=== PATIENT | female | born 1935 | race Caucasian/White ===

== ENCOUNTER 2016-11-26 14:12 | Emergency (ER) | payer MEDICARE, MEDICAID ==
[2016-11-26] MEDS ORDERED: Sodium Chloride 0.9% 1,000 ML IV ONE (14:51)
[2016-11-26 15:04] VITALS: RESP 18
[2016-11-26] MEDS ORDERED: Sodium Chloride 0.9% 1,000 ML ONE (15:12)
[2016-11-26 15:37] LABS: BASO % 0.6 % (0.0-2.0); EOS # 0.1 K/uL (0.0-0.7); EOS % 1.8 % (0.0-4.0); HEMATOCRIT 42.4 % (34.0-47.0); LYMPH # 1.6 K/uL (1.0-4.3); LYMPH % 28.3 % (20.0-40.0); MEAN CELL VOLUME 86.8 fL (81.0-99.0); MEAN CORPUSCULAR HEMOGLOBIN 28.4 pg (27.0-31.0); MEAN CORPUSCULAR HGB CONC 32.7 g/dL (33.0-37.0); MEAN PLATELET VOLUME 8.6 fL (7.2-11.7); MONO # 0.5 K/uL (0.0-0.8); MONO % 8.7 % (0.0-10.0); RED CELL DISTRIBUTION WIDTH 13.7 % (11.5-14.5); WHITE BLOOD COUNT 5.6 K/uL (4.8-10.8)
[2016-11-26 15:50] LABS: CHLORIDE 103 mmol/L (98-107)
[2016-11-26 15:51] LABS: POTASSIUM 4.5 mmol/L (3.6-5.2); SODIUM 139 mmol/L (132-148)
[2016-11-26 15:54] LABS: ALB/GLOB RATIO 1.2 (1.0-2.1); ALKALINE PHOSPHATASE 56 U/L (38-126); ALT/SGPT 41 U/L (9-52); AST/SGOT 30 U/L (14-36); BILIRUBIN,TOTAL 0.6 mg/dL (0.2-1.3); BLOOD UREA NITROGEN 21 mg/dL (7-17); CALCIUM 8.9 mg/dl (8.6-10.4); CARBON DIOXIDE 27 mmol/L (22-30); GFR AFRICAN-AMERICAN > 60; GLUCOSE,RANDOM 147 mg/dL (65-105); TOTAL PROTEIN 7.2 g/dL (6.3-8.3)
--- NOTE | 2016-11-26 16:30 | RAD ---
HISTORY: SOB COMPARISON: Comparison made with the chest radiograph dated 06/19/2016 TECHNIQUE: Chest PA and lateral FINDINGS: LUNGS: Poor inspiration with low lung volumes, mild crowded bronchovascular markings and mild bibasilar atelectasis. PLEURA: No significant pleural effusion identified. No pneumothorax apparent. CARDIOVASCULAR: Heart size within range of normal. Aorta is slightly ectatic and uncoiled. OSSEOUS STRUCTURES: Mild multilevel degenerative spondylosis of the thoracic and cervical spine. Mild degenerative changes both shoulder girdles VISUALIZED UPPER ABDOMEN: Normal. OTHER FINDINGS: None. IMPRESSION: Poor inspiration with low lung volumes, mild crowded bronchovascular markings and mild bibasilar atelectasis.
--- NOTE | 2016-11-26 16:35 | C.PDOC ---
History Of Present Illness 81 y/o female presents to the ED with complains of diffuse myalgias, tiredness, sore throat, headache, and upper back pain x3 days. Pt denies cough, fever, dizziness, SOB, abdominal pain, diarrhea or any other complaints. Time Seen by Provider: 11/26/16 14:43 Chief Complaint (Nursing): Headache History Per: Patient Onset/Duration Of Symptoms: Days Current Symptoms Are (Timing): Still Present Severity: Mild Preceeding Symptoms: None Recent travel outside of the [place]: No Past Medical History Reviewed: Historical Data, Nursing Documentation, Vital Signs Vital Signs: Last Vital Signs Temp 98.1 F 11/26/16 17:06 Pulse 74 11/26/16 17:06 Resp 18 11/26/16 17:06 BP 149/49 L 11/26/16 17:06 Pulse Ox 97 11/26/16 17:06 - Medical History PMH: Arthritis, Diabetes, Gastritis ((+)H Pylori), HTN, Hypercholesterolemia, Hyperlipidemia, Hypothyroidism Surgical History: Appendectomy - [facility] Procedures INSPECTION OF UPPER INTESTINAL TRACT, ENDO (02/12/16) Family History: States: Unknown Family Hx - Social History Hx Tobacco Use: No Hx Alcohol Use: No Hx Substance Use: No - Immunization History Hx Tetanus Toxoid Vaccination: No Hx Influenza Vaccination: No Hx Pneumococcal Vaccination: No Review Of Systems Constitutional: Negative for: Fever ENT: Positive for: Throat Pain Cardiovascular: Negative for: Chest Pain Respiratory: Negative for: Cough, Shortness of Breath Gastrointestinal: Negative for: Vomiting, Abdominal Pain, Diarrhea Musculoskeletal: Positive for: Back Pain, Other (diffuse myalgias) Neurological: Positive for: Headache Physical Exam - Physical Exam Appears: Non-toxic, No Acute Distress Skin: Warm, Dry, No Rash Head: Atraumatic, Normacephalic Ear(s): Bilateral: Normal Nose: Normal Oral Mucosa: Moist Throat: Erythema (pharyngeal), No Exudate Neck: Normal ROM, Supple Chest: Symmetrical Cardiovascular: Rhythm Regular, No Murmur Respiratory: Normal Breath Sounds, No Rales, No Rhonchi, No Wheezing Gastrointestinal/Abdominal: Soft, No Tenderness Extremity: Normal ROM Extremity: Bilateral: Atraumatic Neurological/Psych: Oriented x3, Normal Speech ED Course And Treatment - Laboratory Results Result Diagrams: 11/26/16 15:29 03/18/17 15:29 Lab Interpretation: No Acute Changes O2 Sat by Pulse Oximetry: 98 (on room air) Pulse Ox Interpretation: Normal - Radiology CXR: Interpreted by Me, Viewed By Me, Read By Radiologist (Yonas Gusman MD ) CXR Interpretation: Yes: Other (Poor inspiration with low lung volumes, mild crowded bronchovascular markings and mild bibasilar atelectasis.) Medical Decision Making Medical Decision Making: Plan: IV fluids, labs, UA, rapid strep, flu swab, CXR Progress: All labs and CXR reviewed with no acute findings. Re-eval: Upon reevaluation patient has no fever and appears well, nontoxic in no acute distress. She reports feeling better. Discussed results with patient, and copy of report was provided. Patient feels comfortable going home and will be discharged. Patient given follow up instructions. Instructed to return to ER if symptoms worsen or new symptoms arise. Disposition Counseled Patient/Family Regarding: Need For Followup, Rx Given - Disposition Referrals: Alek Toro MD [Staff Provider] - Disposition: HOME/ ROUTINE Disposition Time: 16:45 Condition: STABLE Additional Instructions: Vaya a lentz mdico o la clnica en 2-5 huitron sin falta, para mas evaluacin. [place] los medicamentos jamal indicado. Volver a la alexis de emergencia en cualquier momento si los sntomas persisten o empeoran. 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 - Scribe Statement The provider has reviewed the documentation as recorded by the Scribe Quinten Browning All medical record entries made by the Scribe were at my direction and personally dictated by me. I have reviewed the chart and agree that the record accurately reflects my personal performance of the history, physical exam, medical decision making, and the department course for this patient. I have also personally directed, reviewed, and agree with the discharge instructions and disposition.
[2016-11-26 16:37] LABS: RBC URINE 1 /hpf (0-3); URINE BACTERIA RARE (<OCC); URINE BILIRUBIN NEGATIVE (NEGATIVE); URINE BLOOD NEGATIVE (NEGATIVE); URINE COLOR Yellow (YELLOW); URINE GLUCOSE (UA) 3+ mg/dL (Normal); URINE KETONE NEGATIVE (NEGATIVE); URINE LEUKOCYTE ESTERASE NEG Leu/uL (Negative); URINE PROTEIN NEGATIVE (NEGATIVE); URINE UROBILINOGEN NORMAL mg/dL (0.2-1.0); WBC URINE 1 /hpf (0-5)
[2016-11-26 17:07] VITALS: BP 149/49; PULSE 74; TEMP 98.1
[2016-11-26 17:27] VITALS: O2SAT 98
== END 2016-11-26 17:14 | disposition home or self-care (01) ==
LOC: C.ER 14:12
DX: B34.9 Viral infection, unspecified (principal)
CPT/HCPCS: 71020; 80053; 81001; 85025; 87070; 87430; 87804; 96360; 99285; J7040

== ENCOUNTER 2017-02-11 16:40 | Emergency (ER) | payer MEDICARE, MEDICAID ==
[2017-02-11 17:11] LABS: BASO % 0.6 % (0.0-2.0); EOS # 0.2 K/uL (0.0-0.7); EOS % 3.8 % (0.0-4.0); HEMATOCRIT 41.1 % (34.0-47.0); LYMPH # 2.1 K/uL (1.0-4.3); LYMPH % 33.7 % (20.0-40.0); MEAN CELL VOLUME 86.4 fL (81.0-99.0); MEAN CORPUSCULAR HEMOGLOBIN 28.7 pg (27.0-31.0); MEAN CORPUSCULAR HGB CONC 33.2 g/dL (33.0-37.0); MEAN PLATELET VOLUME 8.6 fL (7.2-11.7); MONO # 0.4 K/uL (0.0-0.8); MONO % 6.8 % (0.0-10.0); WHITE BLOOD COUNT 6.2 K/uL (4.8-10.8)
--- NOTE | 2017-02-11 17:27 | C.PDOC ---
History Of Present Illness 81-year-old female, presents to the emergency department with complaints of a non-productive cough x3 days that is associated with shortness of breath on exertion and discomfort in lower ribs with deep inspiration. States she has a Hx of pneumonia and is concerned. A few months ago, she was diagnosed with breast mass. Patient has had repeat ultrasounds and is scheduled for a biopsy in three days. No leg swelling, URI sx, nasal congestion or any other associated symptoms. No other complaints at this time. Time Seen by Provider: 02/11/17 16:49 Chief Complaint (Nursing): Shortness Of Breath History Per: Patient History/Exam Limitations: no limitations Onset/Duration Of Symptoms: Days Current Symptoms Are (Timing): Still Present Severity: Moderate Past Medical History Reviewed: Historical Data, Nursing Documentation, Vital Signs Vital Signs: Last Vital Signs Temp 97.9 F 02/11/17 16:45 Pulse 92 H 02/11/17 16:58 Resp 17 02/11/17 16:58 BP 137/80 02/11/17 16:45 Pulse Ox 96 02/11/17 17:28 - Medical History PMH: Arthritis, Diabetes, Gastritis ((+)H Pylori), HTN, Hypercholesterolemia, Hyperlipidemia, Hypothyroidism Surgical History: Appendectomy - [facility] Procedures INSPECTION OF UPPER INTESTINAL TRACT, ENDO (02/12/16) Family History: States: No Known Family Hx - Social History Hx Tobacco Use: No Hx Alcohol Use: No Hx Substance Use: No - Immunization History Hx Tetanus Toxoid Vaccination: No Hx Influenza Vaccination: No (not sure) Hx Pneumococcal Vaccination: No (not sure) Review Of Systems Except As Marked, All Systems Reviewed And Found Negative. Constitutional: Negative for: Fever Cardiovascular: Positive for: Chest Pain Respiratory: Positive for: Cough, SOB with Excertion. Negative for: Sputum Gastrointestinal: Negative for: Nausea, Vomiting Skin: Negative for: Rash Neurological: Negative for: Weakness, Numbness, Headache, Dizziness Physical Exam - Physical Exam Appears: Non-toxic, No Acute Distress Skin: Normal Color, Warm, Dry, No Rash Head: Atraumatic, Normacephalic Eye(s): bilateral: Normal Inspection, PERRL, EOMI Nose: Normal Oral Mucosa: Moist Lips: Normal Appearing Neck: Normal ROM Cardiovascular: Rhythm Regular, No Murmur Respiratory: No Accessory Muscle Use, Other (DIMINISHED HARSH BREATH SOUNDS B/L) Gastrointestinal/Abdominal: Normal Exam Back: Normal Inspection Extremity: Normal ROM Neurological/Psych: Oriented x3 ED Course And Treatment - Laboratory Results Result Diagrams: 02/11/17 17:06 02/11/17 17:06 Lab Interpretation: No Acute Changes ECG: Interpreted By Me ECG Rhythm: Sinus Rhythm, Nonspecific Changes (T wave flattening) ECG Interpretation: No Acute Changes O2 Sat by Pulse Oximetry: 96 Pulse Ox Interpretation: Normal - Radiology CXR: Viewed By Me, Read By Radiologist CXR Interpretation: Yes: No Acute Disease, Other (Low lung volumes with bibasilar atelectasis) Reevaluation Time: 18:35 Reassessment Condition: Improved (Patient remains comfortable and in no distress. No difficulty breathing or cough in ED.) Disposition - Disposition Disposition: HOME/ ROUTINE Disposition Time: 18:40 Condition: STABLE Additional Instructions: encourage plenty of fluids and rest. Take Robitussin DM for cough if needed. Instructions: Upper Respiratory Infection (ED) Print Language: SLOVENIAN - Clinical Impression Clinical Impression: Upper respiratory infection - Scribe Statement The provider has reviewed the documentation as recorded by the Yuridia Benjamin All medical record entries made by the Scribe were at my direction and personally dictated by me. I have reviewed the chart and agree that the record accurately reflects my personal performance of the history, physical exam, medical decision making, and the department course for this patient. I have also personally directed, reviewed, and agree with the discharge instructions and disposition.
[2017-02-11 17:28] LABS: CHLORIDE 101 mmol/L (98-107)
[2017-02-11 17:29] LABS: POTASSIUM 4.2 mmol/L (3.6-5.2); SODIUM 136 mmol/L (132-148)
[2017-02-11 17:31] LABS: ALB/GLOB RATIO 1.4 (1.0-2.1); AST/SGOT 40 U/L (14-36); BILIRUBIN,TOTAL 0.6 mg/dL (0.2-1.3); CARBON DIOXIDE 25 mmol/L (22-30); GFR AFRICAN-AMERICAN > 60; TOTAL PROTEIN 7.1 g/dL (6.3-8.3)
[2017-02-11 17:32] LABS: ALKALINE PHOSPHATASE 57 U/L (38-126); ALT/SGPT 30 U/L (9-52); BLOOD UREA NITROGEN 27 mg/dL (7-17); GLUCOSE,RANDOM 242 mg/dL (65-105)
--- NOTE | 2017-02-11 18:32 | RAD ---
HISTORY: SOB COMPARISON: Comparison chest 11/26/2016 TECHNIQUE: Chest PA and lateral FINDINGS: LUNGS: Poor inspiration with low lung volumes, mild crowded bronchovascular markings and mild bibasilar atelectasis PLEURA: No significant pleural effusion identified. No pneumothorax apparent. CARDIOVASCULAR: Normal. OSSEOUS STRUCTURES: No significant abnormalities. VISUALIZED UPPER ABDOMEN: Normal. OTHER FINDINGS: None. IMPRESSION: Poor inspiration with low lung volumes, mild crowded bronchovascular markings and mild bibasilar atelectasis
[2017-02-11 19:02] VITALS: BP 155/77; PULSE 72; TEMP 97.7; O2SAT 98
[2017-02-11 19:18] VITALS: RESP 18
--- NOTE | 2017-02-17 16:50 | CARD ---
APPROVED REPORT EKG Measurement Heart [id number] <Conclusion> Normal sinus rhythm Nonspecific T wave abnormality Abnormal ECG
== END 2017-02-11 19:00 | disposition home or self-care (01) ==
LOC: C.ER 16:40
DX: J06.9 Acute upper respiratory infection, unspecified (principal)

== ENCOUNTER 2017-02-27 16:17 | Inpatient (IN) | payer MEDICARE, MEDICAID ==
--- NOTE | 2017-02-27 18:24 | C.PDOC ---
History Of Present Illness 81 y/o female presents to ED with complaint of intermittent abdominal pain for the last 2 years. (+) nauseous, (+) diarrhea. Pt was evaluated [facility] ER visit last night. Pt had CT scan done at that time, showing pancreatic mass. Patient followed up with Dr. Toro today, who instructed her to come to [facility] ER for further evaluation. She notes pain is worse every time she eats. Notes past history of H pylori, gastritis, endoscopy and colonoscopy last year. Time Seen by Provider: 02/27/17 17:56 Chief Complaint (Nursing): Abdominal Pain History Per: Patient, Family History/Exam Limitations: no limitations Onset/Duration Of Symptoms: Intermittent Episodes (2 years) Current Symptoms Are (Timing): Worse Location Of Pain/Discomfort: Epigastric Radiation Of Pain To:: None Associated Symptoms: Nausea, Diarrhea. denies: Fever, Back Pain, Urinary Symptoms Recent travel outside of the [place]: No Past Medical History Reviewed: Historical Data, Nursing Documentation, Vital Signs Vital Signs: Last Vital Signs Temp 98.1 F 03/02/17 17:35 Pulse 66 03/02/17 17:35 Resp 20 03/02/17 17:35 BP 151/80 H 03/02/17 17:35 Pulse Ox 96 03/02/17 17:35 - Medical History PMH: Arthritis, Diabetes, Gastritis ((+)H Pylori), HTN, Hypercholesterolemia, Hyperlipidemia, Hypothyroidism, Osteoporosis Surgical History: Appendectomy - [facility] Procedures INSPECTION OF UPPER INTESTINAL TRACT, ENDO (02/12/16) Family History: States: Unknown Family Hx - Social History Hx Tobacco Use: No Hx Alcohol Use: No Hx Substance Use: No - Immunization History Hx Tetanus Toxoid Vaccination: No Hx Influenza Vaccination: No (not sure) Hx Pneumococcal Vaccination: No (not sure) Review Of Systems Except As Marked, All Systems Reviewed And Found Negative. Constitutional: Negative for: Fever, Chills Cardiovascular: Negative for: Chest Pain Respiratory: Negative for: Cough, Shortness of Breath Gastrointestinal: Positive for: Nausea, Abdominal Pain, Diarrhea. Negative for : Vomiting Genitourinary: Negative for: Dysuria, Frequency, Hematuria Musculoskeletal: Negative for: Neck Pain Skin: Negative for: Rash Physical Exam - Physical Exam Appears: Non-toxic, No Acute Distress Skin: Warm, Dry Head: Atraumatic, Normacephalic Eye(s): bilateral: Normal Inspection, EOMI Nose: Normal Oral Mucosa: Moist Neck: No Paracervical Tenderness, Supple Chest: Symmetrical Cardiovascular: Rhythm Regular Respiratory: Normal Breath Sounds, No Rales, No Rhonchi, No Wheezing Gastrointestinal/Abdominal: Soft, Tenderness (mild epigastric), No Distention, No Guarding, No Rebound Back: Normal Inspection Extremity: Normal ROM, Capillary Refill (< 2 sec.) Neurological/Psych: Oriented x3, Normal Speech, Normal Cognition ED Course And Treatment - Laboratory Results Result Diagrams: 03/02/17 07:39 03/02/17 07:39 O2 Sat by Pulse Oximetry: 98 (RA) Pulse Ox Interpretation: Normal Progress Note: Treated with Lopressor. Labs ordered and reviewed. Case discussed with Dr. Toro who requests admission. Patient refuses pain medication. 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 - Scribe Statement The provider has reviewed the documentation as recorded by the Scribtyrese Cedillo All medical record entries made by the Yuridia were at my direction and personally dictated by me. I have reviewed the chart and agree that the record accurately reflects my personal performance of the history, physical exam, medical decision making, and the department course for this patient. I have also personally directed, reviewed, and agree with the discharge instructions and disposition.
[2017-02-27 18:33] LABS: BASO % 0.5 % (0.0-2.0); EOS # 0.2 K/uL (0.0-0.7); EOS % 2.5 % (0.0-4.0); HEMATOCRIT 40.2 % (34.0-47.0); LYMPH # 2.4 K/uL (1.0-4.3); LYMPH % 32.9 % (20.0-40.0); MEAN CELL VOLUME 87.3 fL (81.0-99.0); MEAN CORPUSCULAR HEMOGLOBIN 28.2 pg (27.0-31.0); MEAN CORPUSCULAR HGB CONC 32.3 g/dL (33.0-37.0); MONO # 0.5 K/uL (0.0-0.8); MONO % 6.7 % (0.0-10.0); RED CELL DISTRIBUTION WIDTH 14.2 % (11.5-14.5); WHITE BLOOD COUNT 7.2 K/uL (4.8-10.8)
[2017-02-27 18:38] LABS: RBC URINE < 1 /hpf (0-3); URINE BILIRUBIN NEGATIVE (NEGATIVE); URINE BLOOD NEGATIVE (NEGATIVE); URINE COLOR Yellow (YELLOW); URINE GLUCOSE (UA) 3+ mg/dL (Normal); URINE KETONE NEGATIVE (NEGATIVE); URINE LEUKOCYTE ESTERASE NEG Leu/uL (Negative); URINE PROTEIN NEGATIVE (NEGATIVE); URINE UROBILINOGEN NORMAL mg/dL (0.2-1.0); WBC URINE < 1 /hpf (0-5)
[2017-02-27 18:40] LABS: CHLORIDE 107 mmol/L (98-107); POTASSIUM 4.7 mmol/L (3.6-5.2); SODIUM 143 mmol/L (132-148)
[2017-02-27 18:42] LABS: GFR AFRICAN-AMERICAN > 60
[2017-02-27 18:43] LABS: ALB/GLOB RATIO 1.4 (1.0-2.1); ALKALINE PHOSPHATASE 58 U/L (38-126); ALT/SGPT 24 U/L (9-52); AST/SGOT 20 U/L (14-36); BILIRUBIN,TOTAL 0.4 mg/dL (0.2-1.3); BLOOD UREA NITROGEN 25 mg/dL (7-17); CALCIUM 8.9 mg/dl (8.6-10.4); CARBON DIOXIDE 28 mmol/L (22-30); GLUCOSE,RANDOM 267 mg/dL (65-105); TOTAL PROTEIN 6.7 g/dL (6.3-8.3)
[2017-02-27 21:09] VITALS: RESP 20
[2017-02-27] MEDS ORDERED: Ergocalciferol 50,000 Intl Units Cap PO SCH (22:45)
[2017-02-27] MEDS: Sucralfate 1 gm/10 ml Oral Susp UD PO SCH (23:00)
[2017-02-27] MEDS: Sodium Chloride 0.45% 1,000 ML IV SCH (23:01)
[2017-02-28] MEDS: Sucralfate 1 gm/10 ml Oral Susp UD PO SCH ×3 (06:16→21:39)
[2017-02-28] MEDS: Levothyroxine 50 MCG TAB PO SCH (06:16)
[2017-02-28 07:11] LABS: HEMATOCRIT 39.6 % (34.0-47.0); MEAN CELL VOLUME 86.7 fL (81.0-99.0); MEAN CORPUSCULAR HEMOGLOBIN 28.2 pg (27.0-31.0); MEAN CORPUSCULAR HGB CONC 32.5 g/dL (33.0-37.0); MEAN PLATELET VOLUME 9.3 fL (7.2-11.7); WHITE BLOOD COUNT 6.9 K/uL (4.8-10.8)
[2017-02-28 07:21] LABS: CHLORIDE 108 mmol/L (98-107)
[2017-02-28 07:22] LABS: POTASSIUM 3.6 mmol/L (3.6-5.2); SODIUM 141 mmol/L (132-148)
[2017-02-28 07:24] LABS: ALB/GLOB RATIO 1.2 (1.0-2.1); ALKALINE PHOSPHATASE 56 U/L (38-126); AST/SGOT 28 U/L (14-36); BILIRUBIN,TOTAL 0.6 mg/dL (0.2-1.3); BLOOD UREA NITROGEN 18 mg/dL (7-17); CARBON DIOXIDE 25 mmol/L (22-30); GFR AFRICAN-AMERICAN > 60; GLUCOSE,RANDOM 100 mg/dL (65-105); TOTAL PROTEIN 6.4 g/dL (6.3-8.3)
[2017-02-28 07:25] LABS: ALT/SGPT 23 U/L (9-52); CALCIUM 8.6 mg/dl (8.6-10.4)
[2017-02-28 09:11] LABS: CA 19-9 7.1 U/mL (0-37); CARCINOEMBRYONIC ANTIGEN 0.7 ng/mL (0-3.0); THYROID STIMULATING HORMONE 3.89 mIU/L (0.46-4.68)
--- NOTE | 2017-02-28 10:00 | CP.PCM.CON ---
History of Present Illness - History of Present Illness History of Present Illness: 81 yo female presented to [facility] two days ago with epigastric and diffuse abdominal pain, nausea and diarrhea for the previous two days. Patient has had similar pain for the past two years. EGD done here last year showed hiatal hernia and mild gastritis, no ulcer or mass. CTA at [facility] report shows a 6mm enhancing lesion in the head of the pancreas but no adenopathy, ductal dilatation or other findings. Tumor markers on admission here were negative after being sent to ER by PCP. No fever, chills, weight loss. MRI with contrast of pancreas advised by radiologist at [facility]. No Etoh or pancreatic problems in the past. Review of Systems - Constitutional Constitutional: absent: Chills, Excessive Sweating - Respiratory Respiratory: absent: Cough, Dyspnea on Exertion, Chest Congestion - Gastrointestinal Gastrointestinal: As Per HPI, Abdominal Pain, Bloating, Diarrhea, Nausea. absent: Coffee Ground Emesis, Heartburn, Hematemesis, Hematochezia, Melena, Odynophagia - Genitourinary Genitourinary: absent: Dysuria, Pyuria Past Patient History - Past Medical History & Family History Past Medical History?: Yes - Past Social History Smoking Status: Never Smoked Alcohol: None Drugs: Denies Home Situation {Lives}: With Family - CARDIAC Hx Hypercholesterolemia: Yes Hx Hypertension: Yes - PULMONARY Hx Respiratory Disorders: No - NEUROLOGICAL Hx Neurological Disorder: Yes Hx Dizziness: Yes - HEENT Hx HEENT Problems: Yes Hx Cataracts: Yes Other/Comment: WEARS GLASSES - RENAL Hx Chronic Kidney Disease: No - ENDOCRINE/METABOLIC Hx Endocrine Disorders: Yes Hx Diabetes Mellitus Type 2: Yes Hx Hypothyroidism: Yes - HEMATOLOGICAL/ONCOLOGICAL Hx Blood Disorders: No Hx Cirrhosis: No Hx Hepatitis A: No Hx Hepatitis B: No Hx Hepatitis C: No Hx Human Immunodeficiency Virus (HIV): No - INTEGUMENTARY Hx Dermatological Problems: No - MUSCULOSKELETAL/RHEUMATOLOGICAL Hx Falls: No - GASTROINTESTINAL Hx Gastrointestinal Disorders: Yes Hx Bowel Surgery: No Hx Clostridium Difficile: No Hx Colitis: No Hx Colostomy: No Hx Constipation: No Hx Crohn's Disease: No Hx Diarrhea: No Hx Diverticulitis: No Hx Esophageal Varices: No Hx Fatty Liver Disease: No Hx Gall Bladder Disease: No Hx Gastritis: Yes ((+)H Pylori) Hx Gastroesophageal Reflux: Yes Hx Hemorrhoids: No Hx Ileostomy: No Hx Irritable Bowel: No Hx Liver Failure: No Hx Nausea: No Hx Pancreatitis: Yes HX Swallowing Problems: No Hx Ulcer: No Hx Vomiting: No Other/Comment: colonoscopy done at [facility] two years ago per family and was normal - GENITOURINARY/GYNECOLOGICAL Hx Genitourinary Disorders: No - PSYCHIATRIC Hx Psychophysiologic Disorder: No Hx Substance Use: No - SURGICAL HISTORY Hx Surgeries: Yes Hx Appendectomy: Yes - ANESTHESIA Hx Anesthesia: Yes Hx Anesthesia Reactions: Yes (Delusions) Hx Malignant Hyperthermia: No Has any member of the family had a problem w/ anesthesia?: No Meds Allergies/Adverse Reactions: Allergies Allergy/AdvReac Type Severity Reaction Status Date / Time Insulins Allergy Intermediate VOMITING Verified 02/27/17 16:32 Penicillins Allergy Intermediate SHORTNESS Verified 02/27/17 16:32 OF BREATH - Medications Medications: Current Medications Dicyclomine HCl (Bentyl) 10 mg PO BID [facility] Ergocalciferol (Drisdol 50,000 Intl Units Cap) 1 cap PO Q7D [facility] Glimepiride (Amaryl) 2 mg PO AMHS [facility] Heparin Sodium (Porcine) (Heparin) 5,000 units SC Q12 [facility] Last Admin: 02/27/17 23:00 Dose: 5,000 units Sodium Chloride (Sodium Chloride 0.45%) 1,000 mls @ 80 mls/hr IV .[id number] [facility] Last Admin: 02/27/17 23:01 Dose: 80 mls/hr Levothyroxine Sodium (Synthroid) 50 mcg PO DAILY@0630 [facility] Last Admin: 02/28/17 06:16 Dose: 50 mcg Lisinopril (Zestril) 5 mg PO DAILY [facility] Meclizine HCl (Antivert) 12.5 mg PO Q8H [facility] Last Admin: 02/28/17 06:16 Dose: 12.5 mg Metoprolol Tartrate (Lopressor) 25 mg PO DAILY [facility] Multivitamins (Hexavitamin) 1 tab PO DAILY [facility] Pantoprazole Sodium (Protonix Inj) 40 mg IVP DAILY [facility] Pneumococcal Polyvalent Vaccine (Pneumovax 23 Vaccine) 0.5 ml IM .ONCE ONE Stop: 03/01/17 10:01 Sucralfate (Carafate Oral Susp) 1 gm PO Q8H [facility] Last Admin: 02/28/17 06:16 Dose: 1 gm Physical Exam - Constitutional Appears: No Acute Distress - Head Exam Head Exam: ATRAUMATIC, NORMOCEPHALIC - Eye Exam Eye Exam: EOMI, PERRL - Respiratory Exam Respiratory Exam: Clear to Auscultation Bilateral, NORMAL BREATHING PATTERN - Cardiovascular Exam Cardiovascular Exam: REGULAR RHYTHM, +S1 - GI/Abdominal Exam GI & Abdominal Exam: Normal Bowel Sounds, Soft. absent: Distended, Guarding, Mass, Rebound, Rigid, Tenderness - Rectal Exam Rectal Exam: Deferred - Extremities Exam Extremities exam: Positive for: normal inspection. Negative for: calf tenderness, pedal edema - Neurological Exam Neurological exam: Alert, Oriented x3 - Psychiatric Exam Psychiatric exam: Normal Affect, Normal Mood - Skin Skin Exam: Dry, Warm Results - Vital Signs Recent Vital Signs: Last Vital Signs Temp 98.1 F 02/28/17 08:00 Pulse 74 02/28/17 08:00 Resp 20 02/28/17 08:00 BP 148/72 02/28/17 08:00 Pulse Ox 97 02/28/17 08:00 - Labs Result Diagrams: 02/28/17 06:48 02/28/17 06:48 Labs: Laboratory Results - last 24 hr 02/27/17 02/27/17 02/27/17 18:28 18:28 18:28 WBC 7.2 RBC 4.61 Hgb 13.0 Hct 40.2 MCV 87.3 MCH 28.2 MCHC 32.3 L RDW 14.2 Plt Count 258 MPV 9.0 Neut % (Auto) 57.4 Lymph % (Auto) 32.9 Barren % (Auto) 6.7 Eos % (Auto) 2.5 Baso % (Auto) 0.5 Neut # 4.1 Lymph # 2.4 Barren # 0.5 Eos # 0.2 Baso # 0.0 APTT Sodium 143 Potassium 4.7 Chloride 107 Carbon Dioxide 28 Anion Gap 12 BUN 25 H Creatinine 0.8 Est GFR ( Amer) > 60 Est GFR (Non-Af Amer) > 60 POC Glucose (mg/dL) Random Glucose 267 H Calcium 8.9 Total Bilirubin 0.4 AST 20 ALT 24 Alkaline Phosphatase 58 Total Protein 6.7 Albumin 3.9 Globulin 2.8 Albumin/Globulin Ratio 1.4 Alpha Fetoprotein Carcinoembryonic Ag CA 19-9 Antigen TSH 3rd Generation Urine Color Yellow Urine Clarity Clear Urine pH 5.0 Ur Specific [place] 1.040 H Urine Protein Negative Urine Glucose (UA) 3+ H Urine Ketones Negative Urine Blood Negative Urine Nitrate Negative Urine Bilirubin Negative Urine Urobilinogen Normal Ur Leukocyte Esterase Neg Urine WBC (Auto) < 1 Urine RBC (Auto) < 1 Ur Squamous Epith Cells < 1 02/27/17 02/28/17 02/28/17 21:45 06:48 06:48 WBC 6.9 RBC 4.56 Hgb 12.9 Hct 39.6 MCV 86.7 MCH 28.2 MCHC 32.5 L RDW 14.0 Plt Count 231 MPV 9.3 Neut % (Auto) Lymph % (Auto) Barren % (Auto) Eos % (Auto) Baso % (Auto) Neut # Lymph # Barren # Eos # Baso # APTT 33 Sodium Potassium Chloride Carbon Dioxide Anion Gap BUN Creatinine Est GFR ( Amer) Est GFR (Non-Af Amer) POC Glucose (mg/dL) 152 H Random Glucose Calcium Total Bilirubin AST ALT Alkaline Phosphatase Total Protein Albumin Globulin Albumin/Globulin Ratio Alpha Fetoprotein Carcinoembryonic Ag CA 19-9 Antigen TSH 3rd Generation Urine Color Urine Clarity Urine pH Ur Specific [place] Urine Protein Urine Glucose (UA) Urine Ketones Urine Blood Urine Nitrate Urine Bilirubin Urine Urobilinogen Ur Leukocyte Esterase Urine WBC (Auto) Urine RBC (Auto) Ur Squamous Epith Cells 02/28/17 02/28/17 02/28/17 06:48 06:48 07:16 WBC RBC Hgb Hct MCV MCH MCHC RDW Plt Count MPV Neut % (Auto) Lymph % (Auto) Barren % (Auto) Eos % (Auto) Baso % (Auto) Neut # Lymph # Barren # Eos # Baso # APTT Sodium 141 Potassium 3.6 Chloride 108 H Carbon Dioxide 25 Anion Gap 12 BUN 18 H Creatinine 0.5 L Est GFR ( Amer) > 60 Est GFR (Non-Af Amer) > 60 POC Glucose (mg/dL) 119 H Random Glucose 100 Calcium 8.6 Total Bilirubin 0.6 AST 28 ALT 23 Alkaline Phosphatase 56 Total Protein 6.4 Albumin 3.6 Globulin 2.9 Albumin/Globulin Ratio 1.2 Alpha Fetoprotein 1.1 Carcinoembryonic Ag 0.7 CA 19-9 Antigen 7.1 TSH 3rd Generation 3.89 Urine Color Urine Clarity Urine pH Ur Specific [place] Urine Protein Urine Glucose (UA) Urine Ketones Urine Blood Urine Nitrate Urine Bilirubin Urine Urobilinogen Ur Leukocyte Esterase Urine WBC (Auto) Urine RBC (Auto) Ur Squamous Epith Cells Assessment & Plan (1) Pancreatic mass Assessment and Plan: Patient with enhancing mass on CTA at [facility] that is small and not associated with other adenopathy or mass effect. r/o neoplasm, hemangioma, neuroendocrine tumor of pancreas. Tumor markers negative for malignancy. MRI with contrast scheduled May need interventional GI Consultation for EUS to better delineate the lesion and/or need for FNA (needle biopsy). Status: Acute (2) Diarrhea Assessment and Plan: r/o infectious, ischemic, doubt malignancy or malabsorption due to acute onset. Stool studies ordered. Status: Acute (3) Abdominal pain Assessment and Plan: Pain is chronic and similar in nature over the past two years. Prior gi work up has been negative including EGD reviewed here and colonoscopy which I can not review as records not accessible form other facility. Doubt pain is related to findings in pancreas. Status: Chronic
[2017-02-28] MEDS: Multiple Vitamins Tab PO SCH (10:52)
[2017-02-28] MEDS: Sodium Chloride 0.45% 1,000 ML IV SCH ×2 (11:04→22:00)
[2017-02-28] MEDS ORDERED: Gadodiamide 287 MG/ML VIAL (15ML) IV ONE (12:19)
[2017-02-28 12:45] LABS: AMYLASE 51 U/L (30-110)
--- NOTE | 2017-02-28 15:47 | MRI ---
PROCEDURE: MRI BRAIN WITH AND WITHOUT CONTRAST HISTORY: dizziness COMPARISON: None. TECHNIQUE: Multiplanar, multisequence MR images of the brain were obtained with and without intravenous contrast enhancement. FINDINGS: HEMORRHAGE: None DWI: No evidence of an acute or early subacute infarction. BRAIN PARENCHYMA: No mass,mass effect or edema. Mild atrophy and mild white matter changes likely due to chronic microvascular ischemic disease. ENHANCEMENT: No abnormal intracranial enhancement. VENTRICLES: Unremarkable. No hydrocephalus. CRANIUM: Unremarkable. ORBITS: Grossly unremarkable. PARANASAL SINUSES/MASTOIDS: Clear VASCULAR SYSTEM: Skull base flow voids intact. OTHER FINDINGS: None . IMPRESSION: No evidence of acute infarct or acute intracranial pathology. No evidence of mass lesion abnormal enhancement mass effect or midline shift. Mild atrophy.
[2017-03-01] MEDS: Levothyroxine 50 MCG TAB PO SCH (05:43)
[2017-03-01] MEDS: Sucralfate 1 gm/10 ml Oral Susp UD PO SCH ×4 (05:45→21:34)
--- NOTE | 2017-03-01 06:52 | HP ---
HISTORY OF PRESENT ILLNESS: The patient is an 81-year-old female with history of diabetes and hyperte nsion and gastritis. The patient came to my office complaining of abdominal pain and nausea. The margoth maldonado was at [facility] for similar symptoms and a CAT scan was done on this patient and a mass was found in the head of the pancreas. The patient was discharged, but the patient was st ill having similar symptoms. The patient was also complaining of ____ weakness. I have advised patie nt to go to [facility] for evaluation and admission. ALLERGIES: PENICILLIN. MEDICATIONS: The patient was on multiple medications including meclizine, sucralfate, metoprolol, Am aryl, Levoxyl and ____. PAST MEDICAL HISTORY: As I mentioned, history of hypothyroidism, history of GERD, history of diabete s and hypertension. FAMILY HISTORY: No inherited disease. REVIEW OF SYSTEMS: RESPIRATORY: The patient denied any shortness of breath. CARDIOVASCULAR: The patient denies any chest pain or palpitations. GASTROINTESTINAL: Epigastric pain and nausea. GENITOURINARY: No dysuria. NEUROLOGIC: The patient is awake ____ patient is somewhat worried and depressed. PHYSICAL EXAMINATION: GENERAL: The patient is alert, awake, oriented x 3, but the patient is somewhat worried, anxious. VITAL SIGNS: Blood pressure was 162/82, pulse 74, respirations 20, temperature 98.1. ____ blood pre ssure 121/74, pulse 66, respirations 20, and temperature 97.5. HEENT: Head is normocephalic. Pupils are equal. LUNGS: Clear. HEART: Regular rate and rhythm. Positive murmur. ABDOMEN: Soft, tenderness in the epigastric area. No palpable mass. EXTREMITIES: There is no edema. NEUROLOGIC: The patient is weak and also there is dizziness with change of position, with tendency o f losing balance. LABORATORY DATA: The patient had some tests done. WBC 7.3, hemoglobin 13, hematocrit 40.2, platelet s 258. Today, WBC is 6.9, hemoglobin 12.9, hematocrit ____ and platelets 231. Chemistry: Sodium 14 1, potassium 3.6, chloride 108, bicarb is 25, BUN 18, creatinine is 0.5. Glucose is 100. The patient today had some other tests done. Among then, the patient had an MRI of the brain. The M RI of the brain done showed no evidence of acute infarct or acute intracranial pathology. No evidenc e of mass lesion ____ mass effect or midline shift. DIAGNOSES: So, the patient is admitted with: 1. Abdominal pain. 2. Pancreatic mass. 3. Diabetes. 4. Hypertension. 5. Hypothyroidism. 6. Depression. PLAN: So patient had a consult with LAURA Rosa, and also had an endocrinology consult with Dr. Keanu townsend, and neuro consult with Dr. Tirado. The case was studied and reviewed and discussed with the [facility], Gabrielle Valle. Alek Toro MD cc: [id number] TT: 02/28/2017 20:44:18 jude
--- NOTE | 2017-03-01 07:39 | CON ---
DATE: 03/01/2017 ATTENDING PHYSICIAN: Alek Toro MD ROOM: 356, bed A. REASON FOR CONSULTATION: Dizziness. CHIEF COMPLAINT: The patient was brought into [facility] with a history of abdominal discomfort who has been worked up in medical center, presented here with the same problem. She was admitting a history of dizziness. From neurological point of view, I was called in to evaluate her for further management. HISTORY OF PRESENT ILLNESS: The patient is an 81-year-old, young-looking, right-handed, fem reagan, presenting with 3 months history of dizziness. She describes that her dizziness occurs when she changes her position from sitting to standing, standing to walking. Mostly when the body turns to t he right, she feels that dizziness. No history of fall, no history of losing balance. However, her body moves to the right at times. No history of recent travel. No history of ear infection. No his tory of double vision. No history of bulbar dysfunction. No history of focal weakness. No history of headache. No history of neck pain. No history of lower back pain. No history of keren l or bladder incontinence. PAST MEDICAL HISTORY: Non-insulin dependent diabetes mellitus, hypertension, dyslipidemia, hypothyro idism. PERSONAL HISTORY: Denies smoking or alcohol use. ALLERGIES: INSULIN AND PENICILLIN. MEDICATIONS: In the hospital, she gets Amaryl, Antivert, Bentyl, Carafate, Drisdol, heparin, vitamin s, Lopressor, Synthroid, Zestril. REVIEW OF SYSTEMS: As per H and P. PHYSICAL EXAMINATION: VITAL SIGNS: Blood pressure 165/90, mean arterial pressure 115, respiratory rate 16, temperature afe brile. NECK: Supple. No carotid bruit. HEART SOUNDS: Regular. CHEST: Fair air entry. EXTREMITIES: No edema in legs. Distal muscle group atrophy noted. NEUROLOGIC EXAMINATION: MENTAL STATUS: She is awake, alert, oriented to person, place and time. She is communicable only in Kyr[place]z. Naming, repetition, fluency, comprehension all within normal. CRANIAL NERVES: Visual field intact. Pupils reactive to light. Extraocular movements normal. No n ystagmus. No facial sensory deficit, no facial asymmetry. Hearing is normal. Tongue is midline. G ood gag. MOTOR: On outstretched hands with eyes closed, no drift noted. Power is symmetric on either side. DEEP TENDON REFLEXES: Biceps, brachioradialis, triceps are trace. Both knees are 1+. Both ankles a re absent. Plantars are downgoing. SENSORY: Mild distal sensorimotor neuropathy noted. COORDINATION: Kaisio-xwxq-nnzfin test is intact. GAIT: She could able to get up on her own from the bed. Romberg sent body leaning to the right. On marching with eyes closed, again body is leaning to the right. Tandem is fair. CONCLUSION: Upon reviewing her history and neurological examination, the patient presenting with 3-m onth history of recurrent episode of dizziness, which is position related, more on right side, consis tent with mid cerebellar dysfunction versus peripheral vestibular neuronopathy. 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 WORKUP: WBC 6.9, hemoglobin 12.9, hematocrit 39.6, platelet 231. Sodium 141, potassium 3.6, chlorid e 108, bicarbonate 25, BUN 18, creatinine 0.5, GFR more than 60, glucose 242, calcium 8.6, AST 28, AL T 23. CA 19-9 is 7.1. CEA 0.7. TSH 3.89. RECOMMENDATIONS: 1. The patient should have MRI of the brain to rule out posterior ischemic process or space oc cupying lesion. If there is no sign of tendency of bleeding, patient should be on Plavix for stroke prophylaxis as well as for vestibulopathy. 2. Blood pressure control. 3. Physical therapy should be entertained as early as possible to train her balance and gait. The patient is recommended to have electrodiagnostic studies, which include electromyography and nerv e conduction study to assess the extent of her neuropathy. The patient should be benefited of erica cedeno vestibular rehabilitation, which can be done as outpatient as well. The patient also discussed about controlling her blood pressure and patient should have a polysomnogr am as outpatient to rule in or rule out sleep related breathing disorder because of her cofounding ri sk factors. The patient will be followed closely with you. Jamarcus Tirado MD cc: [id number] TT: 03/01/2017 07:38:55 Confirmation # [id number] Dictation # [id number] en
[2017-03-01] MEDS ORDERED: Pneumococcal 23-Valent Vaccine IM ONE (10:00)
[2017-03-01] MEDS: Multiple Vitamins Tab PO SCH (10:23)
[2017-03-01] MEDS: Sodium Chloride 0.45% 1,000 ML IV SCH (10:26)
[2017-03-01] MEDS ORDERED: Gadodiamide 287 MG/ML VIAL (15ML) IV ONE (11:50)
--- NOTE | 2017-03-01 16:34 | VASCLAB ---
PROCEDURE: HISTORY: stenosis COMPARISON: None available. TECHNIQUE: Grayscale and duplex Doppler evaluation of the cervical carotid and vertebral arteries were performed. The common carotid, carotid bifurcations and cervical Internal Carotid Artery (ICA) and proximal External Carotid Artery (ECA) were evaluated. The vertebral arteries were evaluated for gross patency and flow direction. Report prepared by Oscar Castañeda, BS, RVT FINDINGS: RIGHT CAROTID ARTERIES: 1. Common Carotid Artery: No significant focal plaque formation of the right common carotid artery. Maximum Peak Systolic velocity: 67 cm/sec: End-diastolic velocity 12 cm/sec. 2. Carotid Bifurcation: plaque formation. Maximum Peak Systolic velocity: 77 cm/sec: End-diastolic velocity 12 cm/sec. 3. Internal Carotid Artery: Plaque description: 3.1. Proximal Segment: Peak systolic velocity 70 cm/sec: End-diastolic velocity 16 cm/sec - % stenosis 0-15% 3.2. Middle Segment: Peak systolic velocity 58 cm/sec: End-diastolic velocity 11 cm/sec - % stenosis 0-15% 3.3. Distal Segment: Peak systolic velocity 53 cm/sec: End-diastolic velocity 9 cm/sec - % stenosis 0-15% 4. External Carotid Artery: No significant focal plaque formation. Peak systolic velocity 68 cm/sec 5. ICA/CCA Ratio: 1.2 LEFT CAROTID ARTERIES: 1. Common Carotid Artery: No significant focal plaque formation of the left common carotid artery. Maximum Peak Systolic velocity: 87 cm/sec: End-diastolic velocity 15 cm/sec. 2. Carotid Bifurcation: plaque formation. Maximum Peak Systolic velocity: 38 cm/sec: End-diastolic velocity 9 cm/sec. 3. Internal Carotid Artery: Plaque description: 3.1. Proximal Segment: Peak systolic velocity 70 cm/sec: End-diastolic velocity 19 cm/sec - % stenosis 0-15% 3.2. Middle Segment: Peak systolic velocity 51 cm/sec: End-diastolic velocity 11 cm/sec - % stenosis 0-15% 3.3. Distal Segment: Peak systolic velocity 55 cm/sec: End-diastolic velocity 11 cm/sec - % stenosis 0-15% 4. External Carotid Artery: No significant focal plaque formation. Peak systolic velocity cm/sec 5. ICA/CCA Ratio: VERTEBRAL ARTERIES: 1. Right Vertebral Artery: The right vertebral artery flow direction is antegrade. 2. Left Vertebral Artery: The left vertebral artery flow direction is antegrade. OTHER FINDINGS: 1. Right Brachial Blood pressure: 180 mmHg. 2. Left Brachial Blood pressure: mmHg. IMPRESSION: RIGHT: Duplex scan does not suggest hemodynamically significant stenosis of the right extracranial carotid arteries. LEFT: Duplex scan does not suggest hemodynamically significant stenosis of the left extracranial carotid arteries.
--- NOTE | 2017-03-01 18:03 | MRI ---
PROCEDURE: MRI Abdomen with and without contrast HISTORY: Evaluate for pancreatic head mass. COMPARISON: Comparison is made to the previous CT dated 10/28/2011. TECHNIQUE: Multisequence, multiplanar MR images of the abdomen with and without gadolinium contrast enhancement. FINDINGS: LIVER: No evidence of suspicious mass or acute pathology. GALLBLADDER: Unremarkable. SPLEEN: Unremarkable. PANCREAS: The pancreas is small in size. The main pancreatic duct is slightly dilated. No evidence of enhancing mass lesion. ADRENALS: Unremarkable. KIDNEYS: Unremarkable. AORTA: No aneurysm. ASCITES: None. PERITONEUM: Unremarkable. LYMPH NODES: Unremarkable. OTHER FINDINGS: None. IMPRESSION: No evidence of acute pathology or mass lesion in the pancreas. The main pancreatic duct is slightly prominent in size. The pancreas is mildly atrophic. No evidence of acute pathology or suspicious lesion in the upper abdomen solid organs.
--- NOTE | 2017-03-01 19:44 | PN ---
DATE: 03/01/2017 SUBJECTIVE: Today, the patient is alert and awake and is still complaining of dizziness at times, bu t less abdominal pain, no shortness of breath, no chest pain. OBJECTIVE: VITAL SIGNS: The patient has a blood pressure of 144/68, the pulse is 66, respiration 20, temperatur e 97.8. HEENT: Head is normocephalic. NECK: Supple. No JVD. LUNGS: Clear. HEART: Regular rate and rhythm. ABDOMEN: Soft. Mild tenderness in the epigastric area. EXTREMITIES: There is no edema. LABORATORY DATA: The patient had today an MRI of the abdomen that showed that the pancreas is small in size but the main pancreatic duct is slightly dilated. No evidence of enhancing mass lesion. CONCLUSION: No evidence of acute pathology or mass lesion in the pancreas. The main pancreatic duct is slightly in size. The pancreas is mildly atrophic. No evidence of acute atrophy or suspic ious lesions in the abdomen . PLAN: Consult from Dr. Tirado is appreciated and the recommendation will be will be followed an d will continue the patient on medication and start physical therapy. Alek Toro MD cc: [id number] TT: 03/01/2017 19:43:32 Confirmation # [id number] Dictation # [id number] ln
[2017-03-02] MEDS: Levothyroxine 50 MCG TAB PO SCH (05:32)
[2017-03-02] MEDS: Sucralfate 1 gm/10 ml Oral Susp UD PO SCH ×2 (05:32→13:30)
--- NOTE | 2017-03-02 07:40 | PN ---
DATE: 03/02/2017 TIME OF EVALUATION: 6:55 a.m. 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 PHYSICAL EXAMINATION: VITAL SIGNS: Blood pressure 138/73, mean arterial pressure of 94, respiratory rate 16, temperature 9 8.1, pulse rate 73. NEUROLOGIC: The patient seems to be improved neurologically. Her dizziness is improved. Examinatio n is unchanged to compare with the previous examination. MRI of the brain does not show any focal pathology as well as the CP angle region. The patient's workup, MRI of the brain does not show any focal pathology. RECOMMENDATIONS: The patient is neurologically stable. Once medically stable, the patient can be di scharged and should have followup visit as outpatient. At that point, the patient may need a video e lectroencephalogram as well as the vestibular therapy rehabilitation should be initiated. Jamarcus Tirado MD cc: [id number] TT: 03/02/2017 07:39:53 Confirmation # [id number] Dictation # [id number] tn
[2017-03-02 08:21] LABS: BASO % 0.6 % (0.0-2.0); EOS # 0.3 K/uL (0.0-0.7); EOS % 4.3 % (0.0-4.0); HEMATOCRIT 41.2 % (34.0-47.0); LYMPH # 2.7 K/uL (1.0-4.3); LYMPH % 38.4 % (20.0-40.0); MEAN CELL VOLUME 87.4 fL (81.0-99.0); MEAN CORPUSCULAR HEMOGLOBIN 28.7 pg (27.0-31.0); MEAN CORPUSCULAR HGB CONC 32.8 g/dL (33.0-37.0); MEAN PLATELET VOLUME 9.1 fL (7.2-11.7); MONO # 0.5 K/uL (0.0-0.8); MONO % 7.6 % (0.0-10.0); NRBC % 0.4 % (0.0-2.0); RED CELL DISTRIBUTION WIDTH 13.6 % (11.5-14.5); WHITE BLOOD COUNT 7.1 K/uL (4.8-10.8)
[2017-03-02 08:26] LABS: CHLORIDE 107 mmol/L (98-107); POTASSIUM 3.8 mmol/L (3.6-5.2); SODIUM 141 mmol/L (132-148)
[2017-03-02 08:28] LABS: BILIRUBIN,TOTAL 0.6 mg/dL (0.2-1.3); CARBON DIOXIDE 26 mmol/L (22-30); GFR AFRICAN-AMERICAN > 60
[2017-03-02 08:29] LABS: ALB/GLOB RATIO 1.1 (1.0-2.1); ALKALINE PHOSPHATASE 54 U/L (38-126); ALT/SGPT 22 U/L (9-52); AST/SGOT 31 U/L (14-36); BLOOD UREA NITROGEN 15 mg/dL (7-17); CALCIUM 9.2 mg/dl (8.6-10.4); GLUCOSE,RANDOM 105 mg/dL (65-105); TOTAL PROTEIN 6.5 g/dL (6.3-8.3)
[2017-03-02] MEDS ORDERED: Ergocalciferol 50,000 Intl Units Cap PO SCH (10:00)
[2017-03-02] MEDS: Multiple Vitamins Tab PO SCH (10:18)
[2017-03-02 17:37] VITALS: BP 151/80; PULSE 66; TEMP 98.1
[2017-03-02 20:24] VITALS: O2SAT 98
--- NOTE | 2017-03-03 10:23 | PN ---
DATE: 03/02/2017 SUBJECTIVE: GENERAL: Today, the patient is alert and awake. Denies abdominal pain. No shortness of breath. No chest pain. The patient denies dizziness today, but still feels somewhat weak. VITAL SIGNS: The patient has a blood pressure of 162/76, pulse 67, respirations 20, temperature is 9 7.9. NECK: Supple. No JVD. LUNGS: Clear. HEART: Regular rate and rhythm. ABDOMEN: Soft, positive bowel sounds, nontender. No hepatosplenomegaly. EXTREMITIES: There is no edema. LABORATORY DATA: The patient had tests done. WBC is 7.1, hemoglobin 13.5, hematocrit 41.2, and plat elets 251. Chemistry showed the sodium is 141, potassium 3.8, chloride 107, bicarbonate 26, BUN is 1 6, creatinine 0.7. Glucose is 105. Also, the patient had MRI of the abdomen with and without contra st and that showed no evidence of acute pathology or mass lesion in the pancreas. The main pancreati c duct is slightly small in size and the pancreatic is mildly atrophied. There is no evidence of act maykel pathology or suspicious lesion in the abdomen solid organs. So, the case was discussed with the whole family including the son, brother and also a niece. The patient has had MRI with and without contrast mass as described in the previous CAT scan done at [facility]. Exte nsive explanation was given at this point. Also, the case was reviewed and discussed with Gabrielle coello, the nurse practitioner. At this point, we are going to discharge the patient home, but the azeem ent has physical therapy, so with home PT. We also gave the patient home health aide. Alek Toor MD cc: [id number] TT: 03/02/2017 17:42:51 Confirmation # [id number] Dictation # [id number] dn 03/03/2017 09:22:15
== END 2017-03-02 18:00 | disposition home health service (06) | DRG 440 ==
LOC: C.ER 16:17 → C.9E 18:13 → C.3T 19:03
PROVIDERS: ADMIT Specialist; ATTEND Specialist
DX: K86.89 Other specified diseases of pancreas (principal); E11.42 Type 2 diabetes mellitus with diabetic polyneuropathy; I10 Essential (primary) hypertension; E03.9 Hypothyroidism, unspecified; F32.9 Major depressive disorder, single episode, unspecified; E78.5 Hyperlipidemia, unspecified; K21.9 Gastro-esophageal reflux disease without esophagitis; K29.70 Gastritis, unspecified, without bleeding; K44.9 Diaphragmatic hernia without obstruction or gangrene; M81.0 Age-related osteoporosis without current pathological fracture; Z90.49 Acquired absence of other specified parts of digestive tract; Z79.84 Long term (current) use of oral hypoglycemic drugs

== ENCOUNTER 2018-10-23 00:16 | Emergency (ER) | payer MEDICARE, MEDICAID ==
[2018-10-23 00:45] VITALS: TEMP 97.5
--- NOTE | 2018-10-23 00:53 | C.PDOC ---
History Of Present Illness 83 year old female presents to the ED c/o constipation and rectal pain for the past 3 days. Patient reports her last bowel movement was 3 days ago. Patient states she feels rectal fullness. Patient denies fever, chills, nausea, vomit, diarrhea, rash, recent travel, sick contacts. Time Seen by Provider: 10/23/18 00:52 Chief Complaint (Nursing): GI Problem History Per: Patient History/Exam Limitations: no limitations Onset/Duration Of Symptoms: Days (3) Current Symptoms Are (Timing): Still Present Recent travel outside of the [place]: No Additional History Per: Patient Past Medical History Reviewed: Historical Data, Nursing Documentation, Vital Signs Vital Signs: Last Vital Signs Temp 97.5 F L 10/23/18 00:24 Pulse 100 H 10/23/18 00:24 Resp 20 10/23/18 00:24 BP 191/114 H 10/23/18 00:24 Pulse Ox 96 10/23/18 00:24 - Medical History PMH: Arthritis, Diabetes, Gastritis ((+)H Pylori), HTN, Hypercholesterolemia, Hyperlipidemia, Hypothyroidism, Osteoporosis, Pancreatitis Denies: Crohn's Disease, Diverticulitis, Gall Bladder Disease, HIV, Chronic Kidney Disease Surgical History: Appendectomy - [facility] Procedures INSPECTION OF UPPER INTESTINAL TRACT, ENDO (02/12/16) Family History: States: Unknown Family Hx - Social History Hx Tobacco Use: No Hx Alcohol Use: No Hx Substance Use: No - Immunization History Hx Tetanus Toxoid Vaccination: No Hx Influenza Vaccination: No Hx Pneumococcal Vaccination: No Review Of Systems Constitutional: Negative for: Fever, Chills Cardiovascular: Negative for: Chest Pain Respiratory: Negative for: Shortness of Breath Gastrointestinal: Positive for: Abdominal Pain, Constipation, Rectal Pain. Negative for: Nausea, Vomiting Musculoskeletal: Negative for: Back Pain Skin: Negative for: Rash Neurological: Negative for: Weakness, Numbness, Headache, Dizziness Physical Exam - Physical Exam Appears: Non-toxic, No Acute Distress Skin: Warm, Dry Head: Normacephalic Eye(s): bilateral: Normal Inspection Oral Mucosa: Moist Neck: Supple Chest: Symmetrical Cardiovascular: Rhythm Regular Respiratory: No Rales, No Rhonchi, No Wheezing Gastrointestinal/Abdominal: Soft, No Tenderness, No Guarding, No Rebound Rectal: Other (stool in the vault) Extremity: Bilateral: Atraumatic, Normal Color And Temperature, Normal ROM Neurological/Psych: Oriented x3, Normal Speech, Normal Cognition Gait: Steady ED Course And Treatment O2 Sat by Pulse Oximetry: 96 (ON RA) Pulse Ox Interpretation: Normal Progress Note: Manual disimpaction was attempted, with 750 gm of hards stool removed. Patient states she feel better. Reevaluation Time: 01:53 Reassessment Condition: Improved Medical Decision Making Medical Decision Making: Upon provider reevaluation patient is feeling better, is medically stable, and requires no further treatment in the ED at this time. Patient will be discharged home with Rx for miralax. Counseling was provided and all questions were answered regarding diagnosis and need for follow up with dr muñoz. There is agreement to discharge plan. Return if symptoms persist or worsen. Disposition Counseled Patient/Family Regarding: Studies Performed, Diagnosis, Need For Followup, Rx Given - Disposition Referrals: Alina Muñoz MD [Non-Staff] - Disposition: HOME/ ROUTINE Disposition Time: 00:53 Condition: FAIR Additional Instructions: Please return if symptoms recur Prescriptions: Polyethylene Glycol 3350 [Miralax] 17 gm PO DAILY #270 ml Instructions: Constipation, Adult (DC), Fecal Impaction (DC) Forms: [place] ([place]) Print Language: OCCITAN - Clinical Impression Clinical Impression: Fecal impaction in rectum, Constipation - Scribe Statement The provider has reviewed the documentation as recorded by the Scribe Theodore Wisdom All medical record entries made by the Scribe were at my direction and personally dictated by me. I have reviewed the chart and agree that the record accurately reflects my personal performance of the history, physical exam, medical decision making, and the department course for this patient. I have also personally directed, reviewed, and agree with the discharge instructions and disposition.
[2018-10-23] MEDS ORDERED: Lidocaine 2% Jelly (Uro-Jet) ONE (01:13)
[2018-10-23 01:37] VITALS: BP 184/91; PULSE 86; RESP 16
[2018-10-23 01:45] VITALS: O2SAT 96
== END 2018-10-23 01:46 | disposition home or self-care (01) ==
LOC: C.ER 00:16
DX: K59.00 Constipation, unspecified (principal); E03.9 Hypothyroidism, unspecified; E11.9 Type 2 diabetes mellitus without complications; E78.00 Pure hypercholesterolemia, unspecified; I10 Essential (primary) hypertension; M81.0 Age-related osteoporosis without current pathological fracture

== ENCOUNTER 2018-10-29 19:24 | Emergency (ER) | payer MEDICARE, MEDICAID ==
[2018-10-29 19:41] VITALS: RESP 18
[2018-10-29] MEDS ORDERED: Sodium Chloride 0.9% 1,000 ML IV ONE (20:35)
[2018-10-29] MEDS ORDERED: Iohexol 240 (50 ml) PO ONE (20:36)
[2018-10-29] MEDS ORDERED: Iohexol 240 (50 ml) ONE (20:43)
[2018-10-29] MEDS ORDERED: Sodium Chloride 0.9% 1,000 ML ONE (20:43)
[2018-10-29 21:14] LABS: BASO % 0.4 % (0.0-2.0); EOS # 0.1 K/uL (0.0-0.7); EOS % 1.2 % (0.0-4.0); LYMPH # 1.8 K/uL (1.0-4.3); LYMPH % 19.4 % (20.0-40.0); MEAN CELL VOLUME 87.5 fL (81.0-99.0); MEAN CORPUSCULAR HEMOGLOBIN 27.4 pg (27.0-31.0); MEAN CORPUSCULAR HGB CONC 31.3 g/dL (33.0-37.0); MEAN PLATELET VOLUME 8.8 fL (7.2-11.7); MONO # 0.6 K/uL (0.0-0.8); MONO % 6.5 % (0.0-10.0); NEUT # 6.7 K/uL (1.8-7.0); NEUT % 72.5 % (50.0-75.0); RBC 5.1 Mil/uL (3.80-5.20); RED CELL DISTRIBUTION WIDTH 14.8 % (11.5-14.5); WHITE BLOOD COUNT 9.2 K/uL (4.8-10.8)
[2018-10-29 21:30] LABS: ALB/GLOB RATIO 1.4 (1.0-2.1); ALBUMIN 4.7 g/dL (3.5-5.0); ALT/SGPT 38 U/L (9-52); AST/SGOT 53 U/L (14-36); BLOOD UREA NITROGEN 31 mg/dL (7-17); CALCIUM 9.8 mg/dl (8.6-10.4); GFR NON-AFRICAN AMERICAN > 60; LIPASE 203 U/L (23-300)
[2018-10-29] MEDS ORDERED: Iodixanol 320 MG/ML 100 ML BOTTLE IV ONE (22:02)
[2018-10-29 23:58] VITALS: BP 171/71; PULSE 83; TEMP 97.8; O2SAT 100
--- NOTE | 2018-10-30 01:10 | C.PDOC ---
History Of Present Illness 83 year old female presents to the ER with constipation for the past 3 days. Patient states her last bowel movement was 3 days ago. She was seen in the ER 4 days ago for similar complaint, has been taking meds given to her for const ipation. Admits to low fiber diet. Denies nausea or vomiting. Chief Complaint (Nursing): GI Problem History Per: Patient History/Exam Limitations: no limitations Onset/Duration Of Symptoms: Days Current Symptoms Are (Timing): Still Present Quality Of Discomfort: Unable To Describe Associated Symptoms: Constipation. denies: Nausea, Vomiting Exacerbating Factors: None Alleviating Factors: None Recent travel outside of the [place]: No Abnormal Vaginal Bleeding: No Past Medical History Reviewed: Historical Data, Nursing Documentation, Vital Signs Vital Signs: Last Vital Signs Temp 97.8 F 10/29/18 23:56 Pulse 83 10/29/18 23:56 Resp 18 10/29/18 23:56 BP 171/71 H 10/29/18 23:56 Pulse Ox 100 10/29/18 23:56 - Medical History PMH: Arthritis, Diabetes, Gastritis ((+)H Pylori), HTN, Hypercholesterolemia, Hyperlipidemia, Hypothyroidism, Osteoporosis, Pancreatitis Denies: Crohn's Disease, Diverticulitis, Gall Bladder Disease, HIV, Chronic Kidney Disease Surgical History: Appendectomy - [facility] Procedures INSPECTION OF UPPER INTESTINAL TRACT, ENDO (02/12/16) Family History: States: Unknown Family Hx - Social History Hx Tobacco Use: No Hx Alcohol Use: No Hx Substance Use: No - Immunization History Hx Tetanus Toxoid Vaccination: No Hx Influenza Vaccination: No Hx Pneumococcal Vaccination: No Review Of Systems Constitutional: Negative for: Fever, Chills Cardiovascular: Negative for: Chest Pain, Palpitations Respiratory: Negative for: Cough, Shortness of Breath Gastrointestinal: Positive for: Constipation. Negative for: Nausea, Vomiting Neurological: Negative for: Weakness, Numbness Physical Exam - Physical Exam Appears: Non-toxic Skin: Normal Color, Warm, Dry Head: Atraumatic, Normacephalic Eye(s): bilateral: Normal Inspection Oral Mucosa: Moist Neck: Normal, Supple Chest: Symmetrical, No Tenderness Cardiovascular: Rhythm Regular Respiratory: Normal Breath Sounds, No Rales, No Rhonchi, No Wheezing Gastrointestinal/Abdominal: Soft, Tenderness (Mild diffuse), Distention (Mild), No Guarding, No Rebound Back: No CVA Tenderness Neurological/Psych: Oriented x3, Normal Speech ED Course And Treatment - Laboratory Results Result Diagrams: 10/29/18 21:08 10/29/18 21:08 Lab Results: Total Bilirubin 0.3 mg/dL (0.2-1.3) 10/29/18 21:08 AST 53 U/L (14-36) H D 10/29/18 21:08 ALT 38 U/L (9-52) 10/29/18 21:08 Alkaline Phosphatase 76 U/L (38-126) 10/29/18 21:08 Total Protein 8.0 g/dL (6.3-8.3) 10/29/18 21:08 Albumin 4.7 g/dL (3.5-5.0) 10/29/18 21:08 Globulin 3.3 gm/dL (2.2-3.9) 10/29/18 21:08 Albumin/Globulin Ratio 1.4 (1.0-2.1) 10/29/18 21:08 Lipase 203 U/L (23-300) 10/29/18 21:08 O2 Sat by Pulse Oximetry: 100 (Room air) Pulse Ox Interpretation: Normal - CT Scan/US CT abd/pel Other Rad Studies (CT/US): Read By Radiologist, Radiology Report Reviewed CT/US Interpretation: EXAM: CT Abdomen and Pelvis with IV contrast. CLINICAL HISTORY: CONSTIPATION.VERNON UMBILICAL PAIN. TECHNIQUE: Axial computed tomography images of the abdomen and pelvis with intravenous contrast. 0.00 mGy-cm. CONTRAST: With; OMNI 240 & VISI 320 100MLS. COMPARISON: None provided. FINDINGS: LUNG BASES: Mild atelectasis in the visualized lung bases. The visualized heart is mildly enlarged. LIVER: Liver demonstrates diffuse fatty infiltration. GALLBLADDER AND BILE DUCTS: The gallbladder appears within normal limits. No radioopaque gallstones are seen. No biliary ductal dilatation is evident. PANCREAS: Unremarkable. SPLEEN: Unremarkable. ADRENAL GLANDS: Unremarkable. KIDNEYS, URETERS, AND BLADDER: Both kidneys demonstrate extrarenal pelves. There is mild fullness of the right renal collecting system and right proximal ureter to the level of the inferior aspect of L3 with what may be an obstructing calculus measuring 6 mm on series 601, image 58. Alternatively, this could represent a phlebolith immediately adjacent to the ureter. Please correlate clinically. Mild fullness of left proximal ureter without obstructing calculus seen. STOMACH AND BOWEL: No bowel o bstruction. There is constipation in the proximal and mid colon. APPENDIX: The appendix is visualized in the right lower quadrant. The proximal appendix is normal in caliber and air filled. However, the more distal appendix measures 7 mm and is not [id number] filled. Most probably this simply reflects normal though slightly prominent appendix. However, the possibility of early or mild tip appendicitis is not excluded. Please correlate clinically and if indicated, short-term followup imaging can be obtained. PERITONEUM: No pneumoperitoneum or ascites. LYMPH NODES: No lymphadenopathy. REPRODUCTIVE: Unremarkable as visualized. VASCULATURE: Visualized abdominal aorta and branch is are mildly to moderately atherosclerotic. BONES: Mild to moderate multilevel degenerative spine changes. IMPRESSION: 1. There is mild fullness of the right renal collecting system and right proximal ureter to the level of the inferior aspect of L3 with what may be an obstructing calculus measuring 6 mm on series 601, image 58. Alternatively, this could represent a phlebolith immediately adjacent to the ureter. Please correlate clinically. 2. Mild fullness of left proximal ureter without obstructing calculus seen. 3. The appendix is visualized in the right lower quadrant. The proximal appendix is normal in caliber and air filled. However, the more distal appendix measures 7 mm and is not [id number] filled. Most probably this simply reflects normal though slightly prominent appe ndix. However, the possibility of early or mild tip appendicitis is not excluded. Please correlate clinically and if indicated, short-term followup imaging can be obtained. 4. There is constipation in the proximal and mid colon. 5. Additional and incidental findings as described, please see, Progress Note: After PO contrast, patient had large bowel movement and instantly feels better, will dc to follow up with PMD. Disposition - Disposition Referrals: [facility] Shae Watkins, [Non-Staff] - Disposition: HOME/ ROUTINE Disposition Time: 23:25 Condition: IMPROVED Additional Instructions: JUAN ALBERTO QUINTANILLA, thank you for letting us take care of you today. Your provider was Jack Garvin DO and you were treated for CONSTIPATION. The emergency medical care you received today was directed at your acute symptoms. If you were prescribed any medication, please fill it and take as directed. It may take se veral days for your symptoms to resolve. Return to the Emergency Department if your symptoms worsen, do not improve, or if you have any other problems. Please contact your doctor or call one of the physicians/clinics you have been referred to that are listed on the Patient Visit Information form that is included in your discharge packet. Bring any paperwork you were given at discharge with you along with any medications you are taking to your follow up visit. Our treatment cannot replace ongoing medical care by a primary care provider outside of the emergency department. Thank you for allowing the [facility] team to be part of your care today. Try to eat foods high in fiber. Follow up with your primary care doctor this week for re-evaluation and further management. JUAN ALBERTO E QUINTANILLA, milo por dejarnos cuidar de usted hoy. Rose proveedor fue Jack Garvin DO y usted recibi tratamiento por CONSTIPACIN. La atencin mdica de emergencia que recibi hoy se dirigi a ellis sntomas agudos. Si le recetaron algn medicamento, llnelo y tmelo segn las indicaciones. Los snto mas pueden tardar varios huitron en resolverse. Regrese al Departamento de Emergencias si ellis sntomas empeoran, no mejoran o si tiene otros problemas. Comunquese con rose mdico o llame a rody de los mdicos / clnicas a los que calderon sido referido que figuran en el formulario de Informacin de visita al paciente que se incluye en rose paquete de nino. Lleve todos los documentos que le entregaron al momento del nino junto con todos los medicamentos que est tomando para rose visita de seguimiento. Nuestro tratamiento no puede reemplazar la atencin mdica continua por un proveedor de atencin primaria fuera del departamento de emergencias. Milo por permitir que el equipo de [facility] sea parte de rose atencin hoy. Trate de comer alimentos ricos en fibra. Sheryl un seguimiento con rose mdico de atencin primaria esta semana para reevaluar y administrar ms. Instructions: High Fiber Diet, Constipation, Adult (DC) Forms: [employer] (Persian) Print Language: VIETNAMESE - Clinical Impression Clinical Impression: Constipation - Scribe Statement The provider has reviewed the documentation as recorded by the Scribe Oscar Wade All medical record entries made by the Scribe were at my direction and personally dictated by me. I have reviewed the chart and agree that the record accurately reflects my personal performance of the history, physical exam, medical decision making, and the department course for this patient. I have also personally directed, reviewed, and agree with the discharge instructions and disposition.
--- NOTE | 2018-10-30 09:45 | CT ---
PROCEDURE: CT Abdomen and Pelvis with oral and IV contrast. HISTORY: abd pain COMPARISON: CT abdomen and pelvis with contrast performed 10/28/11 TECHNIQUE: Contiguous axial images of the abdomen and pelvis. Oral and IV contrast was administered. Coronal and Sagittal reformats generated and reviewed. Contrast dose: 100 mL Visipaque 320 IV Radiation dose: Total exam DLP = 661.02 mGy-cm. This CT exam was performed using one or more of the following dose reduction techniques: Automated exposure control, adjustment of the mA and/or kV according to patient size, and/or use of iterative reconstruction technique. FINDINGS: LOWER THORAX: No visible consolidation, pleural effusion, or pneumothorax. Partially imaged cardiomegaly. Calcified granuloma versus calcified lymph node, cardiophrenic region. Small hiatal hernia. LIVER: Hypoattenuation of the liver compatible with hepatic steatosis. GALLBLADDER AND BILE DUCTS: Unremarkable. PANCREAS: Unremarkable. SPLEEN: Unremarkable. ADRENALS: Unremarkable. KIDNEYS AND URETERS: The kidneys enhance symmetrically. 4 mm calculus within the proximal right ureter (series 3, image 90). Mild proximal hydroureteronephrosis. BLADDER: The urinary bladder appears unremarkable. REPRODUCTIVE: Uterus is present. APPENDIX: The appendix appears within normal limits of caliber. No secondary signs of acute appendicitis. BOWEL: The stomach is nondistended. The bowel loops appear within normal limits of caliber without evidence of intestinal obstruction. PERITONEUM: No significant free fluid. No definite free air. LYMPH NODES: No bulky lymphadenopathy identified. VASCULATURE: No aortic aneurysm. Atherosclerotic calcifications of the aorta. BONES: Degenerative changes of the spine. Mild anterolisthesis of L4 on L5. OTHER FINDINGS: None. IMPRESSION: 4 mm proximal right ureteral calculus with mild proximal hydroureteronephrosis. Additional findings as above. Preliminary impression was provided by [employer].
== END 2018-10-30 00:02 | disposition home or self-care (01) ==
LOC: C.ER 19:24
DX: K59.00 Constipation, unspecified (principal); E03.9 Hypothyroidism, unspecified; E11.9 Type 2 diabetes mellitus without complications; E78.00 Pure hypercholesterolemia, unspecified; I10 Essential (primary) hypertension; M81.0 Age-related osteoporosis without current pathological fracture; E78.5 Hyperlipidemia, unspecified
CPT/HCPCS: 74177; 80053; 83690; 85025; 99284; J7030; Q9966; Q9967

== ENCOUNTER 2018-12-12 10:49 | Outpatient (CLI) | payer MEDICARE, MEDICAID | END 2018-12-12 10:50 | disposition home or self-care (01) | LOC: C.MAMMO 10:49 ==

== ENCOUNTER 2019-01-08 11:14 | Outpatient (CLI) | payer MEDICARE, MEDICAID | END 2019-01-08 11:15 | disposition home or self-care (01) | LOC: C.USH 11:14 | DX: N63.0 Unspecified lump in unspecified breast (principal) ==